=== PATIENT | female | born 1955 | race Two or more races ===

== ENCOUNTER 2017-09-16 10:30 | Outpatient (CLI) | payer OTHER ==
[~2017-09-16 10:30] MED LIST: ABILIFY5 MG PO; AMBIEN10 MG PO; CELLCEPT PO; CIPRO500 MG PO; CYMBALTA60 MG PO; FLAGYL500MG PO; KLONOPIN0.5 MG/TAB PO; LEVSIN/SL0.125 MG; LITHIUM CARBON300 M2 PO; PREDNISONE PO; TRAZADONE PO; ZANTAC150 MG PO; ZYRTEC10 M3 PO
== END 2017-09-16 10:42 | disposition home or self-care (01) ==
LOC: RAD 10:30
DX: M54.2 Cervicalgia (principal); M54.5 Low back pain

== ENCOUNTER 2018-01-21 10:04 | Outpatient (CLI) | payer OTHER | END 2018-01-21 10:16 | disposition home or self-care (01) | LOC: MRI 10:04 | DX: M54.5 Low back pain (principal) | CPT/HCPCS: 72148 ==

== ENCOUNTER 2019-02-23 12:42 | Outpatient (CLI) | payer OTHER | END 2019-02-23 12:44 | disposition home or self-care (01) | LOC: RAD 12:42 | DX: M19.041 Primary osteoarthritis, right hand (principal); M19.042 Primary osteoarthritis, left hand ==

== ENCOUNTER 2019-08-19 13:07 | Emergency (ER) | payer OTHER ==
[~2019-08-19] VITALS: Ht 162.6 cm; Wt 98.9 kg
[2019-08-19] MEDS ORDERED: SEROQUEL50 MG PO (13:23)
[2019-08-19] MEDS ORDERED: CLONAZEPAM2 MG PO (13:23)
[2019-08-19] MEDS ORDERED: PROMETH-CODEIN 65 ML PO (14:24)
[2019-08-19] MEDS ORDERED: MUCINEX1200 MG PO (14:24)
== END 2019-08-19 15:39 | disposition home or self-care (01) ==
LOC: ER 13:07
DX: R05 Cough (principal)

== ENCOUNTER 2022-03-18 11:26 | Outpatient (CLI) | payer OTHER ==
[~2022-03-18 11:26] MED LIST changes: +CLONAZEPAM2 MG PO; +MUCINEX1200 MG PO; +PROMETH-CODEIN 65 ML PO; +SEROQUEL50 MG PO
== END 2022-03-18 11:39 | disposition home or self-care (01) ==
LOC: MRI 11:26
PROVIDERS: ATTEND Orthopaedic Surgery
DX: M25.561 Pain in right knee (principal); S83.200A Bucket-handle tear of unspecified meniscus, current injury, right knee, initial encounter
CPT/HCPCS: 73721

== ENCOUNTER 2023-06-02 08:59 | Outpatient (CLI) | payer OTHER | END 2023-06-02 09:10 | disposition home or self-care (01) | LOC: TOM 08:59 | PROVIDERS: ATTEND Student in an Organized Health Care Education/Training Program | DX: Z12.11 Encounter for screening for malignant neoplasm of colon (principal) ==